=== PATIENT | male | born 1995 | race Caucasian/White ===

== ENCOUNTER 2021-12-15 10:29 | Emergency (ER) | payer SELFPAY ==
[~2021-12-15] VITALS: Ht 182.9 cm; Wt 63.5 kg
--- NOTE | 2021-12-15 10:47 | NUR ---
DR RAPHAEL AT BEDSIDE FOR EVAL
--- NOTE | 2021-12-15 11:09 | NUR ---
MUSIC PROFESSOR AT BEDSIDE FOR XRAY
--- NOTE | 2021-12-15 12:11 | NUR ---
PT STATES THAT HE HAS A FINGER SPLINT AT HOME AND THAT HE IS AWARE OF ITS APPLICATION.
[2021-12-15 12:12] VITALS: BP 124/65
--- NOTE | 2021-12-15 12:12 | NUR ---
Patient discharged to home in stable condition. Written and verbal after care instructions given. Patient verbalizes understanding of instruction.
== END 2021-12-15 12:13 | disposition home or self-care (01) ==
LOC: ER 10:36
DX: S62.635A Displaced fracture of distal phalanx of left ring finger, initial encounter for closed fracture (principal); W22.8XXA Striking against or struck by other objects, initial encounter; Y93.89 Activity, other specified; Y92.89 Other specified places as the place of occurrence of the external cause; Y99.8 Other external cause status
CPT/HCPCS: 73140-TC